=== PATIENT | female | born 1990 | race African-American/Black ===

== ENCOUNTER 2022-05-04 00:20 | Inpatient (IN) ==
[2022-05-04] MEDS ORDERED: LIDOCAINE 1% LOCAL 20 ML VIAL INFIL PRN (00:28)
[2022-05-04] MEDS ORDERED: LACTATED RINGER'S 1,000 ML IV PRN (00:28)
[2022-05-04] MEDS ORDERED: OXYTOCIN 30 UNITS/500 ML BAG IV PRN ×2 (00:28→01:40)
[2022-05-04] MEDS ORDERED: ceFAZolin 2000MG 2,000 MG/15 ML SYR IV STA (00:28)
[2022-05-04 01:29] LABS: Hematocrit (blood only) 31.8 % (34.1-44.9); Hemoglobin 10.7 g/dl (12.0-16.0); Mean Corpuscular Hemoglobin 31.3 pg (25.0-34.0); Mean Corpuscular Hgb Conc 33.6 g/dL (32.0-36.0); Platelet Count 245 K/uL (130-400); RDW Coefficient of Variation 13.2 % (11.5-14.5); RDW Standard Deviation 44.9 fL (36.4-46.3); Red Blood Count 3.42 M/uL (3.93-5.22); White Blood Count 11.97 K/ul (4.8-10.8)
[2022-05-04] MEDS ORDERED: oxyCODONE/ACETAMINOPHEN 5mg/325mg TAB PO PRN (01:40)
[2022-05-04] MEDS ORDERED: BENZOCAINE 20% AER SPR 82.5 GM CAN EXT PRN (01:40)
[2022-05-04] MEDS ORDERED: HYDROCORTISONE ACETATE 25 MG SUPP PR PRN (01:40)
[2022-05-04] MEDS ORDERED: ACETAMINOPHEN 325 MG TAB PO PRN (01:40)
[2022-05-04] MEDS ORDERED: DIPHTHERIA/TETANUS/PERTUSSIS 0.5 ML SYR/VIAL IM ONE (01:40)
--- NOTE | 2022-05-04 01:43 | History & Physical Report ---
Date of Service May 04, 2022 Assessment & Plan (1) : Plan: Admit to L&D. Precipitous delivery - no time for epidural. Due to incomplete records, patient delivering at a different hospital than her care, will obtain labs and [facility] screen[facility] Admission and Anticipated Discharge Date Admission Date: May 04, 2022 History of Present Illness Chief Complaint: 31yo @ 38 06/03 with EDC 05/17/22 confirmed by 1st tri US, presented to L&D in spontaneous labor. No records available at time of delivery, however records arrived by fax from [place] after delivery. Patient reported history of 4 vaginal deliveries, uncomplicated. H/o miscarriage x 1. States this is uncomplicated, except for +GBS. Review of records shows: history of bipolar disorder and anxiety, was taking xanax, remeron, flexeril, pepcid and imitrex - stopped all meds at beginning of . History of delivery - no records available. She saw [facility] for the above medication exposures. labs: ABO/Rh O+ 05/15/20 CF/SMA - records indicate this was done, no results available Quad screen - records indicate this was done, no results available Pap smear 06/08/20 normal GC/C neg 10/13/21 Hgb 9.8 02/20/22 Hct 30.2 02/20/22 plt 273 02/20/22 1hr GTT 109 02/20/22 Primary Care Provider: NO PCP Allergies Allergy/AdvReac Type Severity Reaction Status Date / Time Penicillins Allergy Unknown Hives Verified 05/04/22 00:37 Patient History Social History Smoking Status: Never smoker Hx Alcohol Use: No Hx Substance Use: No Preferred Language: [place] [employer] Required: No Beliefs That Will Affect Care: None marital status: Current Living Situation: Family Other Information That Helps Us Care for You: No Feels Safe at Home: Yes Safety Concerns: Feels Safe At This Time Review of Systems All systems reviewed & are unremarkable except as noted in HPI & below Physical Exam Physical Exam: FHT Cat 1, Q2 ctx Very uncomfortable Constitutional: WD/WN, vitals as above Respiratory: normal respiratory effort, lungs clear to auscultation no respiratory distress Cardiovascular: Rate/Rhythm: regular rate and regular rhythm Gastrointestinal (Abdomen): Inspection/Auscultation: abdomen normal to inspection Percussion/Palpation: abdomen soft; abdomen nontender Gravid. No s/s chorio or abruption. Skin: no rashes, warm and dry Psychiatric: A+Ox3, euthymic affect Results & Data ([facility]) Vital Signs (Past 12 Hours) Vital Signs Temp Pulse Resp BP 05/04/22 00:44 36.7 C 18 05/04/22 01:23 77 123/76 Coding Level of Care Code None Diagnoses Z34.90
[2022-05-04 01:51] LABS: Base Excess Cord Venous Blood -1.8 mEq/L (-7.7-1.9); Cord Venous Blood HCO3 23 mmol/L (18.4-26.8); Cord Venous Blood PCO2 39 mmHg (30.4-57.2); Cord Venous Blood PO2 22 mmHg (14.1-43.3); Cord Venous Blood pH 7.38 (7.20-7.44); O2 Saturation Cord Venous Bld < 60.0 % (<68)
--- NOTE | 2022-05-04 01:52 | Delivery Summary ---
Vaginal Delivery Summary Date of Service May 04, 2022 Vaginal Delivery Summary [facility] Vaginal Delivery Summary: Pre-delivery diagnoses: 31yo @ 36 06/03, spontaneous labor, GBS+ Post-delivery diagnoses: same Procedure: spontaneous vaginal delivery Surgeon: Goldie Diop DO Complications: none Findings: Viable male . Apgars 8/9 and weight pending, please see nursery records. Estimated blood loss: 300ml Description of delivery: The patient arrived in spontaneous labor, very uncomfortable and quickly progressed to complete without epidural anesthesia. She then began to push. She spontaneously vaginally delivered a viable from the cephalic presentation. The head delivered in ANDRES position. Nuchal x 1, too tight to reduce, therefore delivered through. The anterior shoulder delivered, followed by the posterior shoulder, followed by the body. The baby was placed on mother's abdomen and a spontaneous cry was heard. Delayed cord clamping was employed, and the cord was doubly clamped and cut. A segment was retained for cord gases. Cord blood was obtained. The placenta was delivered spontaneously intact with a 3-vessel cord. The uterus and vagina were swept of clots and debris. IV pitocin was given. The uterus became firm. The cervix, vagina, and perineum were inspected and no lacerations were noted. Excellent hemostasis was observed. The mother and baby are recovering in stable and good condition in the room. Sponge and instrument counts were correct x 2. Goldie Diop DO [facility] Vaginal Delivery Charge Vaginal Delivery Codes: 87273 vaginal delivery Delivery Type Details: [facility]
[2022-05-04] MEDS: IBUPROFEN 600 MG TAB PO PRN ×5 (02:07→23:43)
[2022-05-04 02:41] LABS: Amphetamines+Metham, Urine Pos (Neg); Barbiturates, Urine Neg (Neg); Benzodiazepine, Urine Neg (Neg); Cocaine, Urine Neg (Neg); MDMA (Ecstacy), Urine Pos (Neg); Methadone, Urine Neg (Neg); Opiate, Urine Neg (Neg); Phencyclidine, Urine Neg (Neg)
[2022-05-04 03:45] LABS: Rubella IgG Ab Immune (Immune)
[2022-05-04] MEDS: DOCUSATE SODIUM 100 MG CAP PO SCH ×2 (07:34→19:51)
[2022-05-04] MEDS: PRENATAL VITAMIN 1 TAB PO SCH (07:34)
--- NOTE | 2022-05-05 06:43 | Obstetrical Progress Note ---
Date of Service <Cody Lopez DO - Last Filed: 05/05/22 07:33> May 05, 2022 Assessment & Plan <Cody Lopez DO - Last Filed: 05/05/22 07:33> (1) Vaginal delivery: Plan - Feels well today. Eating well, voiding well, ambulating well. - Pain well controlled with ibuprofen 600mg Q4H PRN - Routine care -- OOB, ambulation, diet progression as tolerated - After discharge will have 6 week follow-up with Dr. Diop - Will D/C today. Day #:: 1 <Caridad Plunkett MD, FACOG - Last Filed: 05/05/22 07:55> (1) Vaginal delivery: Subjective <Cody Lopez DO - Last Filed: 05/05/22 07:33> Ambulation: ambulating normally Voiding: no voiding problems Passing Gas:: Yes Diet Tolerance:: regular diet Lochia:: Small Feeding Type:: breast feeding Current Pain Level(1-10): 1 Review of Systems Denies fever, chills, sweats Denies shortness of breath, difficulty breathing, chest pain, palpitations, chest pressure. Denies breast pain. Denies dysuria. Denies headache or changes in vision. Physical Exam <Cody Lopez DO - Last Filed: 05/05/22 07:33> General: Alert, oriented. No acute distress. Cardiac: Regular rate and rhythm, no murmurs/rubs/gallops. Respiratory: Clear to auscultation bilaterally a/p, no wheezes/rales/rhonchi. No increased work of breathing. Symmetrical chest rise. No respiratory distress. Abdomen: Soft, nontender, nondistended. Bowel sounds present. Uterus: Uterine fundus firm, palpable 2 cm below umbilicus. Lower Extremities: No lower extremity edema or swelling. No deep calf pain. Ninoska's negative bilaterally. Results & Data ([facility]) <Cody Lopez DO - Last Filed: 05/05/22 07:33> Vital Signs (Past 12 Hours) Vital Signs Temp Pulse Resp BP Pulse Ox O2 Del Method 05/04/22 23:05 36.8 C 77 18 103/57 L 99 Room Air 05/04/22 20:00 36.7 C 62 16 95/56 L Room Air <Caridad Plunkett MD, FACOG - Last Filed: 05/05/22 07:55> Co-Signing Physician Notes Resident Physician Supervision Note: I interviewed and examined the patient. Discussed with Dr. Lopez and agree with findings and plan as documented in the note. Any exceptions or clarifications are listed here: Meeting criteria for d/c. Offered PP visit in 6 weeks. Instructions reviewed. Documented By: Caridad Plunkett MD, FACOG Resident Activity Tracking <Cody Lopez, - Last Filed: 05/05/22 07:33> Resident Involvement: Resident Care Provided Care Provided: OB Delivery
[2022-05-05] MEDS: DOCUSATE SODIUM 100 MG CAP PO SCH (07:45)
[2022-05-05] MEDS: PRENATAL VITAMIN 1 TAB PO SCH (07:45)
[2022-05-05 08:01] LABS: Hematocrit (blood only) 31.5 % (34.1-44.9); Hemoglobin 10.6 g/dl (12.0-16.0)
[2022-05-05] MEDS: IBUPROFEN 600 MG TAB PO PRN (08:03)
[2022-05-05 16:47] LABS: HBSAG NON-REACTIVE (NON-REACTIVE)
[2022-05-05] MEDS ORDERED: bisacodyL 5 MG TABEC PO SCH (20:00)
[2022-05-06] MEDS ORDERED: bisacodyL 10 MG SUPP PR PRN (20:00)
[2022-05-08 14:08] LABS: Amphetamine Urine, Confirm 4650 ng/mL (<250); MDA negative; MDEA negative; MDMA (Ecstasy) Urine, Confirm negative; Methamphetamine, Ur Confirm >15000 ng/mL (<250)
== END 2022-05-05 17:25 | disposition home or self-care (01) | DRG 807 ==
LOC: 4S1 00:20 → 4E1 05:08